=== PATIENT | male | born 1965 | race Caucasian/White ===

== ENCOUNTER 2018-05-31 10:01 | Emergency (ER) | payer SELFPAY ==
[~2018-05-31] VITALS: Ht 180.3 cm; Wt 83.5 kg
[2018-05-31 10:07] VITALS: BP 125/93
[2018-05-31] MEDS: IBUPROFEN 600 MG TABLET. PO ONE (10:40)
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
[2018-05-31] MEDS ORDERED: HYDR-971 PO (11:43)
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
== END 2018-05-31 12:05 | disposition home or self-care (01) ==
LOC: ER 10:01
DX: S62.343A Nondisplaced fracture of base of third metacarpal bone, left hand, initial encounter for closed fracture (principal); R51 Headache; F41.9 Anxiety disorder, unspecified; Z87.442 Personal history of urinary calculi; Y08.89XA Assault by other specified means, initial encounter; Y93.89 Activity, other specified; Y92.89 Other specified places as the place of occurrence of the external cause; Y99.8 Other external cause status
CPT/HCPCS: 29125; 70450; 72125; 73130; 99284

== ENCOUNTER 2018-11-18 04:38 | Emergency (ER) | payer SELFPAY ==
[~2018-11-18] VITALS: Ht 180.3 cm; Wt 79.4 kg
[~2018-11-18 04:38] MED LIST: HYDR-3164 PO
[2018-11-18 04:39] VITALS: BP 140/97
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
[2018-11-18] MEDS ORDERED: IBUPROFEN 400 MG TABLET. PO ONE (05:30)
[2018-11-18] MEDS ORDERED: MELO7.5T29 PO (05:43)
--- NOTE | 2018-11-18 08:15 | RAD ---
Examination: 3 views of the bilateral feet HISTORY: History of bilateral forefoot pain COMPARISON: None available FINDINGS: The alignment of the tarsal joints, tarsometatarsal joints, tarsophalangeal joints, interphalangeal joints grossly appears unremarkable. There is no obvious acute fracture or dislocation identified. IMPRESSION: No acute osseous findings Electronically signed by: Jaswinder Salgado MD (11/18/2018 8:12 AM) [facility]
== END 2018-11-18 06:34 | disposition home or self-care (01) ==
LOC: ER 04:38
DX: M79.671 Pain in right foot (principal); M79.672 Pain in left foot; F41.9 Anxiety disorder, unspecified; Z87.442 Personal history of urinary calculi
CPT/HCPCS: 73630; 99283

== ENCOUNTER 2020-02-12 00:46 | Emergency (ER) | payer SELFPAY ==
[~2020-02-12] VITALS: Ht 180.3 cm; Wt 73.0 kg
[~2020-02-12 00:46] MED LIST changes: +MELO7.5T29 PO
[2020-02-12] MEDS ORDERED: IV NORMAL SALINE 1000ML BAG 1,000 ML IV SCH (00:57)
[2020-02-12 01:18] LABS: BASO # 0.1 x10^3/uL (0.0-0.2); BASO % 1 % (0-3); EOS # 0.2 x10^3/uL (0.0-0.7); EOS % 3 % (0-3); HEMATOCRIT 41.8 % (39.0-53.0); HEMOGLOBIN 14.5 g/dL (13.0-17.5); LYMPH # 2.3 x10^3/uL (1.0-4.8); LYMPH % 27 % (24-48); MEAN CORPUSCULAR HEMOGLOBIN 33 pg (25-35); MEAN CORPUSCULAR HGB CONC 35 g/dL (31-37); MEAN CORPUSCULAR VOLUME 96 fL (79-100); MONO # 0.6 x10^3/uL (0.0-1.1); MONO % 8 % (0-9); NEUT # 5.3 x10^3/uL (1.8-7.7); NEUT % 62 % (31-73); PLATELET COUNT 226 x10^3/uL (140-400); RED BLOOD COUNT 4.36 x10^6/uL (4.30-5.70); RED CELL DISTRIBUTION WIDTH 13.3 % (11.5-14.5); WHITE BLOOD COUNT 8.5 x10^3/uL (4.0-11.0)
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
[2020-02-12 02:52] LABS: ANION GAP 6 (6-14); BLOOD UREA NITROGEN 15 mg/dL (8-26); CALCIUM 7.8 mg/dL (8.5-10.1); CARBON DIOXIDE 26 mmol/L (21-32); CHLORIDE 109 mmol/L (98-107); CREATININE 0.8 mg/dL (0.7-1.3); GFR 101.5; GLUCOSE 102 mg/dL (70-99); SODIUM 141 mmol/L (136-145)
[2020-02-12 02:54] LABS: ALBUMIN 3.4 g/dL (3.4-5.0); ALK PHOS 62 U/L (46-116); ALT (SGPT) 17 U/L (16-63); AST (SGOT) 20 U/L (15-37); DIRECT BILIRUBIN < 0.1 mg/dL (0.0-0.2); TOTAL BILIRUBIN 0.2 mg/dL (0.2-1.0); TOTAL PROTEIN 6.3 g/dL (6.4-8.2)
[2020-02-12 03:19] LABS: BILIRUBIN,URINE NEGATIVE (NEG); CLARITY,URINE CLEAR; COLOR,URINE YELLOW; NITRITE,URINE NEGATIVE (NEG); PROTEIN,URINE NEGATIVE (NEG-TRACE); UROBILINOGEN,URINE 0.2 mg/dL (0.2 mg/dL)
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
[2020-02-12 03:22] LABS: BACTERIA,URINE 0 /HPF (0-FEW); SQUAMOUS EPITHELIAL CELL,UR OCC /LPF
[2020-02-12 03:23] LABS: RBC,URINE OCC /HPF (0-2); WBC,URINE RARE /HPF (0-4)
[2020-02-12 03:26] LABS: BARBITURATES NEG (NEG); BENZODIAZEPINES NEG (NEG); CANNABINOIDS NEG (NEG); COCAINE NEG (NEG); METHADONE NEG (NEG); OPIATES NEG (NEG); PHENCYCLIDINE NEG (NEG)
[2020-02-12 03:34] LABS: AMPHETAMINE/METHAMPHETAMINE POS (NEG)
[2020-02-12] MEDS ORDERED: PHENAZOPYRIDINE 200 MG TABLET. PO ONE (03:45)
[2020-02-12] MEDS ORDERED: ACETAMINOPHEN 500 MG TABLET PO ONE (03:45)
[2020-02-12] MEDS ORDERED: diphenhydrAMINE 50 MG/ML VIAL IVP ONE (04:15)
--- NOTE | 2020-02-12 04:23 | RAD ---
INDICATION: Reason: abnormal initial head CT / Spl. Instructions: / History: COMPARISON: Earlier same day TECHNIQUE: Axial CT images obtained through the head without intravenous contrast. One or more of the following individualized dose reduction techniques were utilized for this examination: 1. Automated exposure control; 2. Adjustment of the mA and/or kV according to patient size; 3. Use of iterative reconstruction technique. FINDINGS: No intracranial hemorrhage. No midline shift. Basal cisterns patent. Ventricles and sulci are unremarkable. Nasal bone fracture IMPRESSION: * The previously identified region of hyperdensity just deep to the calvarium has decreased in conspicuity when compared to previous exam. Given this decrease this was likely secondary to artifact. No evidence of acute intracranial hemorrhage. Electronically signed by: Mitchel Ruiz MD (02/12/2020 4:20 AM) [id number]
[2020-02-12 05:15] VITALS: BP 122/79
== END 2020-02-12 05:30 | disposition home or self-care (01) ==
LOC: ER 00:46
DX: R45.851 Suicidal ideations (principal); F15.129 Other stimulant abuse with intoxication, unspecified; R51 Headache; M79.642 Pain in left hand; F17.200 Nicotine dependence, unspecified, uncomplicated
CPT/HCPCS: 36415; 70450; 70486; 72125; 73130; 80048; 80076; 80307; 81001; 83735; 85025; 96374; 99285; G0480; J1200; J7030